=== PATIENT | male | born 1995 | race American Indian/Alaskan Native ===

== ENCOUNTER 2018-08-08 12:19 | Inpatient (IN) | payer SELFPAY ==
[2018-08-08] MEDS ORDERED: NACL 0.9% 1000 ML 1,000 ML IV ONE ×2 (12:43→15:45)
--- NOTE | 2018-08-08 12:46 | Emergency Department Report ---
ED Abdominal Pain HPI - General Chief Complaint: Abdominal Pain Stated Complaint: VOMIT/WEAK 3 DAYS VOMIT Time Seen by Provider: 08/08/18 12:25 Source: patient Mode of arrival: Ambulatory Limitations: No Limitations - History of Present Illness Initial Comments: Patient is a 22-year-old male that presents emergency room with complaints of nausea, vomiting, fever 24 hours. Patient states she is having nausea and vomiting and diarrhea that is uncontrollable. He states his symptoms are worsening. Patient states he did not get a flu shot this year. Patient denies respiratory symptoms. Patient states she's having sore throat that started after his vomiting. Patient states he is having generalized abdominal pain at 10 out of 10. Patient states the pain is nonradiating and is better with rest and worse with movement and eating and vomiting. MD Complaint: abdominal pain -: Sudden Location: diffuse Radiation: none Migration to: no migration Severity: severe Severity scale (0 -10): 10 Quality: stabbing Consistency: constant Improves With: rest Worsens With: eating, movement Associated Symptoms: nausea, vomiting, diarrhea, fever, chills. denies: constipation, dysuria, hematemesis, hematochezia, melena, hematuria, anorexia, syncope Treatments Prior to Arrival: NSAIDs - Related Data Previous Rx's Medication Instructions Recorded Last Taken Type Ibuprofen [Motrin] 800 mg PO Q8H PRN #14 tablet 05/03/14 Unknown Rx traMADol [Ultram] 50 mg PO Q6HR PRN #10 tablet 05/03/14 Unknown Rx Allergies Allergy/AdvReac Type Severity Reaction Status Date / Time No Known Allergies Allergy Unverified 05/03/14 21:27 ED Review of Systems ROS: Stated complaint: VOMIT/WEAK 3 DAYS VOMIT Other details as noted in HPI Constitutional: denies: chills, fever Eyes: denies: eye pain, eye discharge, vision change ENT: throat pain. denies: ear pain Respiratory: denies: cough, shortness of breath, wheezing Cardiovascular: denies: chest pain, palpitations Endocrine: no symptoms reported Gastrointestinal: abdominal pain, nausea, vomiting, diarrhea Genitourinary: denies: urgency, dysuria Musculoskeletal: denies: back pain, joint swelling, arthralgia Skin: denies: rash, lesions Neurological: denies: headache, weakness, paresthesias Psychiatric: denies: anxiety, depression Hematological/Lymphatic: denies: easy bleeding, easy bruising ED Past Medical Hx - Past Medical History Previous Medical History?: No - Surgical History Past Surgical History?: No - Family History Family history: no significant - Social History Smoking Status: Never Smoker Substance Use Type: None - Medications Home Medications: Home Medications Medication Instructions Recorded Confirmed Last Taken Type Ibuprofen [Motrin] 800 mg PO Q8H PRN #14 tablet 05/03/14 Unknown Rx traMADol [Ultram] 50 mg PO Q6HR PRN #10 tablet 05/03/14 Unknown Rx ED Physical Exam - General Limitations: No Limitations General appearance: alert, in no apparent distress - Head Head exam: Present: atraumatic, normocephalic - Eye Eye exam: Present: normal appearance - ENT ENT exam: Present: mucous membranes dry - Expanded ENT Exam Expanded Throat exam: Positive: tonsillar erythema - Neck Neck exam: Present: normal inspection - Respiratory Respiratory exam: Present: normal lung sounds bilaterally. Absent: respiratory distress - Cardiovascular Cardiovascular Exam: Present: regular rate, normal rhythm. Absent: systolic murmur, diastolic murmur, rubs, gallop - GI/Abdominal GI/Abdominal exam: Present: soft, tenderness (generalized tenderness), normal bowel sounds - Rectal Rectal exam: Present: deferred - Extremities Exam Extremities exam: Present: normal inspection - Back Exam Back exam: Present: normal inspection - Neurological Exam Neurological exam: Present: alert, oriented X3 - Psychiatric Psychiatric exam: Present: normal affect, normal mood - Skin Skin exam: Present: warm, dry, intact, normal color. Absent: rash ED Course Vital Signs 08/08/18 08/08/18 12:27 15:45 Temperature 101.4 F H 99.3 F Pulse Rate 117 H 101 H Respiratory 18 18 Rate Blood Pressure 123/78 Blood Pressure 141/83 [Left] O2 Sat by Pulse 97 99 Oximetry - Reevaluation(s) Reevaluation #1: Discussed all results with patient. Temperature is improved. Patient states she is not feeling better. Patient unable to tolerate by mouth challenge. His custody admission with patient. Patient agrees with plan of care and admission. Patient admitted to the hospitalist service. 08/08/18 15:44 - Consultations Consultation #1: Hospitals consult for admission. Hospitalist to admit patient assume care of patient.. Bridge orders placed 08/08/18 16:13 ED Medical Decision Making - Lab Data Result diagrams: 08/08/18 12:50 08/08/18 12:50 - Radiology Data Radiology results: report reviewed - Medical Decision Making Patient is a 22-year-old male presents emergency room with complaints of nausea and vomiting and sore throat 2 days. Patient nausea and vomiting started prior to his sore throat. Patient's labs significant for dehydration and hypokalemia and hyponatremia. Patient given Zofran and a by mouth challenge done. Patient failed by mouth challenge. Patient's CT significant for gastroenteritis. Patient elevated white count. Patient to be admitted to the hospitalist service for further evaluation treatment. - Differential Diagnosis gastritis. strep. flu. gastroenteritis/ n/v/d Critical Care Time: Yes Critical care attestation.: If time is entered above; I have spent that time in minutes in the direct care of this critically ill patient, excluding procedure time. Critical Care Time: 35 minutes ED Disposition Clinical Impression: Gastroenteritis, Sore throat, Dehydration, Hypokalemia Abdominal pain Qualifiers: Abdominal location: generalized Qualified Code(s): R10.84 - Generalized abdominal pain Nausea & vomiting Qualifiers: Vomiting type: unspecified Vomiting Intractability: intractable Qualified Code(s): R11.2 - Nausea with vomiting, unspecified Fever Qualifiers: Fever type: unspecified Qualified Code(s): R50.9 - Fever, unspecified Disposition: DC-09 OP ADMIT IP TO THIS HOSP Is pt being admited?: Yes Does the pt Need Aspirin: No Condition: Critical Time of Disposition: 15:45
[2018-08-08 13:10] LABS: Hematocrit 44.5 % (35.5-45.6); Hemoglobin 14.9 gm/dl (11.8-15.2); Mean Corpuscular HGB Conc 33 % (32-34); Mean Corpuscular Volume 83 fl (84-94); Platelet Count 245 K/mm3 (140-440); Red Blood Count 5.39 M/mm3 (3.65-5.03); Red Cell Distribution Width 14.1 % (13.2-15.2)
[2018-08-08 13:38] LABS: Basophils % (Manual) 0 % (0.0-1.8); Eosinophils % (Manual) 0 % (0.0-4.3); Total Cells Counted 100
[2018-08-08 13:40] LABS: Anisocytosis 1+; Ovalocytes Few; Platelet Estimate Consistent w Auto; Poikilocytosis 1+
[2018-08-08 13:42] LABS: Alanine Aminotransferase 13 units/L (7-56); Albumin 3.9 g/dL (3.9-5); BUN/Creatinine Ratio 8; Blood Urea Nitrogen 9 mg/dL (9-20); Calcium 8.9 mg/dL (8.4-10.2); Hemolysis Index 9
[2018-08-08 14:06] LABS: Bilirubin,Urine NEG (Negative); Blood,Urine NEG (Negative); Color,Urine Amber (Yellow); Mucus,Urine 3+ /HPF
[2018-08-08] MEDS ORDERED: TYLENOL PO ONE (14:18)
[2018-08-08] MEDS ORDERED: TYLENOL ONE (14:19)
--- NOTE | 2018-08-08 15:24 | Cat Scan Report ---
CT ABDOMEN AND PELVIS WITHOUT CONTRAST INDICATION: Abdominal pain. COMPARISON: None similar. FINDINGS: Noncontrast abdomen and pelvis CT performed. LUNG BASES: Mild nonspecific air-filled distal esophageal wall prominence/thickening, not excluded for gastroesophageal reflux and/or hiatal hernia, amongst others. ABDOMEN: Please note that sensitivity to detect small visceral lesions is limited due to the absence of intravenous or oral contrast. Slight diffuse fatty hepatic infiltration possible. Right hepatic lobe approximately 19 cm in midclavicular length. Otherwise grossly unremarkable the unenhanced liver, spleen, gallbladder, pancreas, adrenals, aorta, IVC and kidneys. Nonopacified GI tract evaluation limited, though grossly nonobstructive. Normal appendix. Fluid contents/ill-formed stool noted along the ascending colon. Small fat-containing umbilical hernia with a transverse neck of 0.7 cm. No ascites. However, numerous small, predominantly subcentimeter, shotty mesenteric and retroperitoneal lymph nodes noted with the largest/somewhat confluent in the right lower quadrant measuring up to 1.3 cm on axial image 103, series 2. PELVIS: Grossly unremarkable non-opacified urinary bladder, seminal vesicles and the prostate. Somewhat fluid/poorly formed contents in the rectosigmoid as well. No free fluid or significant adenopathy. Mild lumbar levocurvature apex about L3. CONCLUSION: Various incidental findings on this limited, unenhanced CT, including possible gastroenteritis, subtle fatty hepatic infiltration and numerous shotty mesenteric lymph nodes, latter possibly considered for mesenteric adenitis as a diagnosis of exclusion in an appropriate setting. Thank you for the opportunity to participate in this patient's care.
[2018-08-08] MEDS ORDERED: ZOFRAN IV ONE (15:45)
[2018-08-08] MEDS ORDERED: ZOSYN/NS 4.5GM/100ML 4.5 GM/100 ML VIAL IV ONE (15:45)
--- NOTE | 2018-08-08 20:50 | History and Physical Report ---
History of Present Illness Date of examination: 08/08/18 Date of admission: 08/08/18 16:10 Chief complaint: Nausea vomiting and diarrhea for 1 day History of present illness: 22-year-old -[place] male with no significant past medical history comes in for persistent vomiting and diarrhea for the last 24 hours. Patient says he vomited about 10-15 times. Patient also has generalized abdominal discomfort. Diffuse all over. Pain is about a scale of 1-10. Loose watery stools. No precipitating factor. Patient also has some sore throat. No fever or chills. Past Medical History Previous Medical History?: No Surgical History Past Surgical History?: No Family History Family history: no significant Social History Smoking Status: Never Smoker Substance Use Type: None Medications Home Medications: Home Medications Medication Instructions Recorded Confirmed Last Taken Type Ibuprofen [Motrin] 800 mg PO Q8H PRN #14 tablet 05/03/14 Unknown Rx traMADol [Ultram] 50 mg PO Q6HR PRN #10 tablet 05/03/14 Unknown Rx Review of Systems ROS: Stated complaint: VOMIT/WEAK 3 DAYS VOMIT Other details as noted in HPI Constitutional: denies: chills, fever Eyes: denies: eye pain, eye discharge, vision change ENT: throat pain. denies: ear pain Respiratory: denies: cough, shortness of breath, wheezing Cardiovascular: denies: chest pain, palpitations Endocrine: no symptoms reported Gastrointestinal: abdominal pain, nausea, vomiting, diarrhea Genitourinary: denies: urgency, dysuria Musculoskeletal: denies: back pain, joint swelling, arthralgia Skin: denies: rash, lesions Neurological: denies: headache, weakness, paresthesias Psychiatric: denies: anxiety, depression Hematological/Lymphatic: denies: easy bleeding, easy bruising Medications and Allergies Allergies Allergy/AdvReac Type Severity Reaction Status Date / Time No Known Allergies Allergy Unverified 05/03/14 21:27 Home Medications Medication Instructions Recorded Confirmed Last Taken Type No Known Home Medications [No 08/08/18 08/08/18 Unknown History Reported Home Medications] Active Meds: Active Medications Benzocaine/Menthol (Cepacol X Strength) 1 each MM Q2HR PRN PRN Reason: Sore Throat Exam - Constitutional Vitals: Temp Pulse Resp BP Pulse Ox 98.4 F 88 16 141/85 99 08/08/18 17:35 08/08/18 17:18 08/08/18 17:18 08/08/18 17:18 08/08/18 17:18 General appearance: Present: no acute distress, well-nourished - EENT Eyes: Present: PERRL ENT: hearing intact, clear oral mucosa, other (dry mucous membranes) - Neck Neck: Present: supple, normal ROM - Respiratory Respiratory effort: normal Respiratory: bilateral: CTA - Cardiovascular Heart rate: 98 Rhythm: regular Heart Sounds: Present: S1 & S2. Absent: rub, click - Extremities Extremities: no ischemia, pulses intact, pulses symmetrical, No edema Peripheral Pulses: within normal limits - Abdominal General gastrointestinal: Present: soft, tender, non-distended, normal bowel sounds Localized gastrointestinal: tender: diffuse (no guarding) Male genitourinary: Present: normal - Rectal Rectal Exam: deferred - Integumentary Integumentary: Present: clear, warm, dry - Musculoskeletal Musculoskeletal: gait normal, strength equal bilaterally - Psychiatric Psychiatric: appropriate mood/affect, intact judgment & insight - Neurologic Neurologic: CNII-XII intact, moves all extremities - Allied Health Allied health notes reviewed: nursing, case management Results - Labs CBC & Chem 7: 08/08/18 12:50 08/08/18 12:50 Labs: Laboratory Last Values WBC 11.4 K/mm3 (4.5-11.0) H 08/08/18 12:50 RBC 5.39 M/mm3 (3.65-5.03) H 08/08/18 12:50 Hgb 14.9 gm/dl (11.8-15.2) 08/08/18 12:50 Hct 44.5 % (35.5-45.6) 08/08/18 12:50 MCV 83 fl (84-94) L 08/08/18 12:50 MCH 28 pg (28-32) 08/08/18 12:50 MCHC 33 % (32-34) 08/08/18 12:50 RDW 14.1 % (13.2-15.2) 08/08/18 12:50 Plt Count 245 K/mm3 (140-440) 08/08/18 12:50 Edgar % (Auto) [employer]ant 08/08/18 12:50 Add Manual Diff Complete 08/08/18 12:50 Total Counted 100 08/08/18 12:50 Seg Neuts % (Manual) 71.0 % (40.0-70.0) H 08/08/18 12:50 Band Neutrophils % 0 % 08/08/18 12:50 Lymphocytes % (Manual) 14.0 % (13.4-35.0) 08/08/18 12:50 Reactive Lymphs % (Man) 0 % 08/08/18 12:50 Monocytes % (Manual) 15.0 % (0.0-7.3) H 08/08/18 12:50 Eosinophils % (Manual) 0 % (0.0-4.3) 08/08/18 12:50 Basophils % (Manual) 0 % (0.0-1.8) 08/08/18 12:50 Metamyelocytes % 0 % 08/08/18 12:50 Myelocytes % 0 % 08/08/18 12:50 Promyelocytes % 0 % 08/08/18 12:50 Blast Cells % 0 % 08/08/18 12:50 Nucleated RBC % Not Reportable 08/08/18 12:50 Seg Neutrophils # Man 8.1 K/mm3 (1.8-7.7) H 08/08/18 12:50 Band Neutrophils # 0.0 K/mm3 08/08/18 12:50 Lymphocytes # (Manual) 1.6 K/mm3 (1.2-5.4) 08/08/18 12:50 Abs React Lymphs (Man) 0.0 K/mm3 08/08/18 12:50 Monocytes # (Manual) 1.7 K/mm3 (0.0-0.8) H 08/08/18 12:50 Eosinophils # (Manual) 0.0 K/mm3 (0.0-0.4) 08/08/18 12:50 Basophils # (Manual) 0.0 K/mm3 (0.0-0.1) 08/08/18 12:50 Metamyelocytes # 0.0 K/mm3 08/08/18 12:50 Myelocytes # 0.0 K/mm3 08/08/18 12:50 Promyelocytes # 0.0 K/mm3 08/08/18 12:50 Blast Cells # 0.0 K/mm3 08/08/18 12:50 WBC Morphology Not Reportable 08/08/18 12:50 Hypersegmented Neuts Not Reportable 08/08/18 12:50 Hyposegmented Neuts Not Reportable 08/08/18 12:50 Hypogranular Neuts Not Reportable 08/08/18 12:50 Smudge Cells Not Reportable 08/08/18 12:50 Toxic Granulation Not Reportable 08/08/18 12:50 Toxic Vacuolation Not Reportable 08/08/18 12:50 Dohle Bodies Not Reportable 08/08/18 12:50 Pelger-Huet Anomaly Not Reportable 08/08/18 12:50 Adrian Rods Not Reportable 08/08/18 12:50 Platelet Estimate Consistent w auto 08/08/18 12:50 Clumped Platelets Not Reportable 08/08/18 12:50 Plt Clumps, EDTA Not Reportable 08/08/18 12:50 Large Platelets Not Reportable 08/08/18 12:50 Giant Platelets Not Reportable 08/08/18 12:50 Platelet Satelliting Not Reportable 08/08/18 12:50 Plt Morphology Comment Not Reportable 08/08/18 12:50 RBC Morphology Not Reportable 08/08/18 12:50 Dimorphic RBCs Not Reportable 08/08/18 12:50 Polychromasia Not Reportable 08/08/18 12:50 Hypochromasia Not Reportable 08/08/18 12:50 Poikilocytosis 1+ 08/08/18 12:50 Anisocytosis 1+ 08/08/18 12:50 Microcytosis Not Reportable 08/08/18 12:50 Macrocytosis Not Reportable 08/08/18 12:50 Spherocytes Not Reportable 08/08/18 12:50 Pappenheimer Bodies Not Reportable 08/08/18 12:50 Sickle Cells Not Reportable 08/08/18 12:50 Target Cells Not Reportable 08/08/18 12:50 Tear Drop Cells Not Reportable 08/08/18 12:50 Ovalocytes Few 08/08/18 12:50 Helmet Cells Not Reportable 08/08/18 12:50 [place] Bodies Not Reportable 08/08/18 12:[address] [place] Rings Not Reportable 08/08/18 12:50 Nelson Cells Not Reportable 08/08/18 12:50 Bite Cells Not Reportable 08/08/18 12:50 Crenated Cell Not Reportable 08/08/18 12:50 Elliptocytes Not Reportable 08/08/18 12:50 Acanthocytes (Spur) Not Reportable 08/08/18 12:50 Rouleaux Not Reportable 08/08/18 12:50 Hemoglobin C Crystals Not Reportable 08/08/18 12:50 Schistocytes Not Reportable 08/08/18 12:50 Malaria parasites Not Reportable 08/08/18 12:50 [place] Bodies Not Reportable 08/08/18 12:50 Hem Pathologist Commnt No 08/08/18 12:50 Sodium 134 mmol/L (137-145) L 08/08/18 12:50 Potassium 3.2 mmol/L (3.6-5.0) L 08/08/18 12:50 Chloride 93.0 mmol/L (98-107) L 08/08/18 12:50 Carbon Dioxide 23 mmol/L (22-30) 08/08/18 12:50 Anion Gap 21 mmol/L 08/08/18 12:50 BUN 9 mg/dL (9-20) 08/08/18 12:50 Creatinine 1.1 mg/dL (0.8-1.5) 08/08/18 12:50 Estimated GFR > 60 ml/min 08/08/18 12:50 BUN/Creatinine Ratio 8 % 08/08/18 12:50 Glucose 118 mg/dL (75-100) H 08/08/18 12:50 Lactic Acid 1.00 mmol/L (0.7-2.0) 08/08/18 15:59 Calcium 8.9 mg/dL (8.4-10.2) 08/08/18 12:50 Total Bilirubin 0.50 mg/dL (0.1-1.2) 08/08/18 12:50 AST 16 units/L (5-40) 08/08/18 12:50 ALT 13 units/L (7-56) 08/08/18 12:50 Alkaline Phosphatase 46 units/L (35-129) 08/08/18 12:50 Total Protein 8.1 g/dL (6.3-8.2) 08/08/18 12:50 Albumin 3.9 g/dL (3.9-5) 08/08/18 12:50 Albumin/Globulin Ratio 0.9 % 08/08/18 12:50 Urine Color Vani (Yellow) 08/08/18 13:50 Urine Turbidity Clear (Clear) 08/08/18 13:50 Urine pH 6.0 (5.0-7.0) 08/08/18 13:50 Ur Specific [place] 1.030 (1.003-1.030) 08/08/18 13:50 Urine Protein 100 mg/dl mg/dL (Negative) 08/08/18 13:50 Urine Glucose (UA) Neg mg/dL (Negative) 08/08/18 13:50 Urine Ketones 20 mg/dL (Negative) 08/08/18 13:50 Urine Blood Neg (Negative) 08/08/18 13:50 Urine Nitrite Neg (Negative) 08/08/18 13:50 Urine Bilirubin Neg (Negative) 08/08/18 13:50 Urine Urobilinogen 2.0 mg/dL (<2.0) 08/08/18 13:50 Ur Leukocyte Esterase Neg (Negative) 08/08/18 13:50 Urine WBC (Auto) 3.0 /HPF (0.0-6.0) 08/08/18 13:50 Urine RBC (Auto) 15.0 /HPF (0.0-6.0) 08/08/18 13:50 U Epithel Cells (Auto) < 1.0 /HPF (0-13.0) 08/08/18 13:50 Urine Mucus 3+ /HPF 08/08/18 13:50 Influenza A (Rapid) Negative (Negative) 08/08/18 Unknown Influenza B (Rapid) Negative (Negative) 08/08/18 Unknown Group A Strep Rapid Negative (Negative) 08/08/18 Unknown Short CBC 08/08/18 Range/Units 12:50 WBC 11.4 H (4.5-11.0) K/mm3 Hgb 14.9 (11.8-15.2) gm/dl Hct 44.5 (35.5-45.6) % Plt Count 245 (140-440) K/mm3 BMP 08/08/18 12:50 Sodium 134 L Potassium 3.2 L Chloride 93.0 L Carbon Dioxide 23 BUN 9 Creatinine 1.1 Glucose 118 H Calcium 8.9 Liver Function 08/08/18 Range/Units 12:50 Total Bilirubin 0.50 (0.1-1.2) mg/dL AST 16 (5-40) units/L ALT 13 (7-56) units/L Alkaline Phosphatase 46 (35-129) units/L Albumin 3.9 (3.9-5) g/dL Urine 08/08/18 Range/Units 13:50 Urine Color Vani (Yellow) Urine pH 6.0 (5.0-7.0) Ur Specific [place] 1.030 (1.003-1.030) Urine Protein 100 mg/dl (Negative) mg/dL Urine Glucose (UA) Neg (Negative) mg/dL - Imaging and Cardiology Imaging and Cardiology: CT abdomen and pelvis CONCLUSION: Various incidental findings on this limited, unenhanced CT, including possible gastroenteritis, subtle fatty hepatic infiltration and numerous shotty mesenteric lymph nodes, latter possibly considered for mesenteric adenitis as a diagnosis of exclusion in an appropriate setting. Assessment and Plan Advance Directives: Yes (full code) VTE prophylaxis?: Chemical Plan of care discussed with patient/family: Yes - Patient Problems (1) Acute gastroenteritis Current Visit: Yes Status: Acute Plan to address problem: IV fluids D5 normal saline with potassium IV Zofran and Reglan for vomiting Kaopectate for diarrhea (2) Dehydration Current Visit: Yes Status: Acute Plan to address problem: IV fluids for now (3) Hypokalemia Current Visit: Yes Status: Acute Plan to address problem: Supplemented (4) DVT prophylaxis Current Visit: Yes Status: Acute Plan to address problem: Lovenox and GI prophylaxis
[2018-08-08] MEDS ORDERED: REGLAN IV PRN (21:07)
[2018-08-08] MEDS ORDERED: ZOFRAN IV PRN (21:07)
[2018-08-08] MEDS ORDERED: SODIUM CHLORIDE FLUSH SYRINGE 10 ML IV PRN (21:07)
[2018-08-08] MEDS ORDERED: TYLENOL PO PRN (21:07)
[2018-08-08] MEDS ORDERED: PEPTO BISMOL PO PRN (21:13)
[2018-08-08] MEDS: CEPACOL X STRENGTH MM PRN (21:58)
[2018-08-08] MEDS: D5NS 1,000 ML IV SCH (21:59)
[2018-08-08] MEDS: SODIUM CHLORIDE FLUSH SYRINGE 10 ML IV SCH (21:59)
[2018-08-08] MEDS: KCL 10MEQ/100ML 10 MEQ/100 ML BAG IV SCH (21:59)
[2018-08-08] MEDS: PROTONIX IV SCH (22:00)
[2018-08-09] MEDS: KCL 10MEQ/100ML 10 MEQ/100 ML BAG IV SCH (00:05)
[2018-08-09] MEDS: CEPACOL X STRENGTH MM PRN ×2 (00:05→09:23)
[2018-08-09 05:48] LABS: Hematocrit 38.9 % (35.5-45.6); Hemoglobin 13.3 gm/dl (11.8-15.2); Mean Corpuscular HGB Conc 34 % (32-34); Mean Corpuscular Volume 82 fl (84-94); Platelet Count 202 K/mm3 (140-440); Red Blood Count 4.76 M/mm3 (3.65-5.03)
[2018-08-09 06:14] LABS: Alanine Aminotransferase 13 units/L (7-56); Albumin 3.6 g/dL (3.9-5); BUN/Creatinine Ratio 10; Blood Urea Nitrogen 7 mg/dL (9-20); Hemolysis Index 8
[2018-08-09 06:28] LABS: Anisocytosis 1+; Band Neutrophils # (Manual) 1.1 K/mm3; Basophils % (Manual) 0 % (0.0-1.8); Eosinophils % (Manual) 0 % (0.0-4.3); Large Platelets Rare; Ovalocytes 1+; Total Cells Counted 100
[2018-08-09] MEDS: D5NS 1,000 ML IV SCH ×3 (07:17→21:48)
--- NOTE | 2018-08-09 09:45 | Progress Note ---
Assessment and Plan Assessment and plan: --Hypokalemia; replenished per protocol and monitor levels Check magnesium --Hyponatremia; replacement therapy with normal saline Closely monitor electrolytes --Hypomagnesemia: Magnesium sulfate --Upper respiratory symptoms/possible pharyngitis/strep throat Amoxicillin, antihistamine, Chloraseptic throat is spray, antihistamine nasal spray as needed --Acute gastroenteritis; possible vital, symptomatic management IV hydration, antiemetics, stool analysis, antidiarrheals --Leukocytosis; stress related, secondary to underlying disease process Resolved --DVT prophylaxis; Lovenox --Obesity; BMI 34.9; advise weight reduction when medically stable Start soft diet and advance as tolerated Closely monitor the patient and adjust management as needed Plan of care is reviewed with the patient and his mother at the bedside History Interval history: Patient seen and examined medical records reviewed Admitted with upper respiratory symptoms, diarrhea Diarrhea significantly improved, complaints of sore throat Throat and upper respiratory congestion Alert awake oriented Mild distress Hospitalist Physical - Constitutional Vitals: Temp Pulse Resp BP Pulse Ox 99.7 F H 108 H 20 138/86 98 08/08/18 23:36 08/08/18 23:36 08/08/18 23:36 08/08/18 23:36 08/08/18 23:36 General appearance: Present: no acute distress, well-nourished - EENT Eyes: Present: PERRL, EOM intact - Neck Neck: Present: supple, normal ROM - Respiratory Respiratory effort: normal Respiratory: bilateral: diminished, negative: rales, rhonchi, wheezing - Cardiovascular Rhythm: regular Heart Sounds: Present: S1 & S2 - Extremities Extremities: no ischemia, No edema - Abdominal General gastrointestinal: soft, non-tender, non-distended, normal bowel sounds - Integumentary Integumentary: Present: clear, warm - Psychiatric Psychiatric: appropriate mood/affect, cooperative - Neurologic Neurologic: CNII-XII intact, moves all extremities Results - Labs CBC & Chem 7: 08/09/18 05:22 08/09/18 05:22 Labs: Laboratory Last Values WBC 9.2 K/mm3 (4.5-11.0) 08/09/18 05:22 RBC 4.76 M/mm3 (3.65-5.03) 08/09/18 05:22 Hgb 13.3 gm/dl (11.8-15.2) 08/09/18 05:22 Hct 38.9 % (35.5-45.6) 08/09/18 05:22 MCV 82 fl (84-94) L 08/09/18 05:22 MCH 28 pg (28-32) 08/09/18 05:22 MCHC 34 % (32-34) 08/09/18 05:22 RDW 14.0 % (13.2-15.2) 08/09/18 05:22 Plt Count 202 K/mm3 (140-440) 08/09/18 05:22 [place] % (Auto) Marketing Summer Intern 08/09/18 05:22 Add Manual Diff Complete 08/09/18 05:22 Total Counted 100 08/09/18 05:22 Seg Neuts % (Manual) 66.0 % (40.0-70.0) 08/09/18 05:22 Band Neutrophils % 12.0 % 08/09/18 05:22 Lymphocytes % (Manual) 13.0 % (13.4-35.0) L 08/09/18 05:22 Reactive Lymphs % (Man) 0 % 08/09/18 05:22 Monocytes % (Manual) 9.0 % (0.0-7.3) H 08/09/18 05:22 Eosinophils % (Manual) 0 % (0.0-4.3) 08/09/18 05:22 Basophils % (Manual) 0 % (0.0-1.8) 08/09/18 05:22 Metamyelocytes % 0 % 08/09/18 05:22 Myelocytes % 0 % 08/09/18 05:22 Promyelocytes % 0 % 08/09/18 05:22 Blast Cells % 0 % 08/09/18 05:22 Nucleated RBC % Not Reportable 08/09/18 05:22 Seg Neutrophils # Man 6.1 K/mm3 (1.8-7.7) 08/09/18 05:22 Band Neutrophils # 1.1 K/mm3 08/09/18 05:22 Lymphocytes # (Manual) 1.2 K/mm3 (1.2-5.4) 08/09/18 05:22 Abs React Lymphs (Man) 0.0 K/mm3 08/09/18 05:22 Monocytes # (Manual) 0.8 K/mm3 (0.0-0.8) 08/09/18 05:22 Eosinophils # (Manual) 0.0 K/mm3 (0.0-0.4) 08/09/18 05:22 Basophils # (Manual) 0.0 K/mm3 (0.0-0.1) 08/09/18 05:22 Metamyelocytes # 0.0 K/mm3 08/09/18 05:22 Myelocytes # 0.0 K/mm3 08/09/18 05:22 Promyelocytes # 0.0 K/mm3 08/09/18 05:22 Blast Cells # 0.0 K/mm3 08/09/18 05:22 WBC Morphology Not Reportable 08/09/18 05:22 Hypersegmented Neuts Not Reportable 08/09/18 05:22 Hyposegmented Neuts Not Reportable 08/09/18 05:22 Hypogranular Neuts Not Reportable 08/09/18 05:22 Smudge Cells Not Reportable 08/09/18 05:22 Toxic Granulation Not Reportable 08/09/18 05:22 Toxic Vacuolation Not Reportable 08/09/18 05:22 Dohle Bodies Not Reportable 08/09/18 05:22 Pelger-Huet Anomaly Not Reportable 08/09/18 05:22 Adrian Rods Not Reportable 08/09/18 05:22 Platelet Estimate Appears normal 08/09/18 05:22 Clumped Platelets Not Reportable 08/09/18 05:22 Plt Clumps, EDTA Not Reportable 08/09/18 05:22 Large Platelets Rare 08/09/18 05:22 Giant Platelets Not Reportable 08/09/18 05:22 Platelet Satelliting Not Reportable 08/09/18 05:22 Plt Morphology Comment Not Reportable 08/09/18 05:22 RBC Morphology Not Reportable 08/09/18 05:22 Dimorphic RBCs Not Reportable 08/09/18 05:22 Polychromasia Not Reportable 08/09/18 05:22 Hypochromasia Not Reportable 08/09/18 05:22 Poikilocytosis Not Reportable 08/09/18 05:22 Anisocytosis 1+ 08/09/18 05:22 Microcytosis Not Reportable 08/09/18 05:22 Macrocytosis Not Reportable 08/09/18 05:22 Spherocytes Not Reportable 08/09/18 05:22 Pappenheimer Bodies Not Reportable 08/09/18 05:22 Sickle Cells Not Reportable 08/09/18 05:22 Target Cells Not Reportable 08/09/18 05:22 Tear Drop Cells Not Reportable 08/09/18 05:22 Ovalocytes 1+ 08/09/18 05:22 Helmet Cells Not Reportable 08/09/18 05:22 [place]ríg[place] Bodies Not Reportable 08/09/18 05:22 [place] Rings Not Reportable 08/09/18 05:22 [place] Cells Not Reportable 08/09/18 05:22 Bite Cells Not Reportable 08/09/18 05:22 Crenated Cell Not Reportable 08/09/18 05:22 Elliptocytes Not Reportable 08/09/18 05:22 Acanthocytes (Spur) Not Reportable 08/09/18 05:22 Rouleaux Not Reportable 08/09/18 05:22 Hemoglobin C Crystals Not Reportable 08/09/18 05:22 Schistocytes Not Reportable 08/09/18 05:22 Malaria parasites Not Reportable 08/09/18 05:22 [place] Bodies Not Reportable 08/09/18 05:22 Hem Pathologist Commnt No 08/09/18 05:22 Sodium 132 mmol/L (137-145) L 08/09/18 05:22 Potassium 3.2 mmol/L (3.6-5.0) L 08/09/18 05:22 Chloride 95.4 mmol/L (98-107) L 08/09/18 05:22 Carbon Dioxide 22 mmol/L (22-30) 08/09/18 05:22 Anion Gap 18 mmol/L 08/09/18 05:22 BUN 7 mg/dL (9-20) L 08/09/18 05:22 Creatinine 0.7 mg/dL (0.8-1.5) L 08/09/18 05:22 Estimated GFR > 60 ml/min 08/09/18 05:22 BUN/Creatinine Ratio 10 % 08/09/18 05:22 Glucose 116 mg/dL (75-100) H 08/09/18 05:22 Hemoglobin A1c 6.2 % (4-6) H 08/08/18 21:23 Lactic Acid 1.00 mmol/L (0.7-2.0) 08/08/18 15:59 Calcium 8.0 mg/dL (8.4-10.2) L 08/09/18 05:22 Total Bilirubin 0.40 mg/dL (0.1-1.2) 08/09/18 05:22 AST 17 units/L (5-40) 08/09/18 05:22 ALT 13 units/L (7-56) 08/09/18 05:22 Alkaline Phosphatase 40 units/L (35-129) 08/09/18 05:22 Total Protein 7.0 g/dL (6.3-8.2) 08/09/18 05:22 Albumin 3.6 g/dL (3.9-5) L 08/09/18 05:22 Albumin/Globulin Ratio 1.1 % 08/09/18 05:22 Urine Color Vani (Yellow) 08/08/18 13:50 Urine Turbidity Clear (Clear) 08/08/18 13:50 Urine pH 6.0 (5.0-7.0) 08/08/18 13:[address] [place] 1.030 (1.003-1.030) 08/08/18 13:50 Urine Protein 100 mg/dl mg/dL (Negative) 08/08/18 13:50 Urine Glucose (UA) Neg mg/dL (Negative) 08/08/18 13:50 Urine Ketones 20 mg/dL (Negative) 08/08/18 13:50 Urine Blood Neg (Negative) 08/08/18 13:50 Urine Nitrite Neg (Negative) 08/08/18 13:50 Urine Bilirubin Neg (Negative) 08/08/18 13:50 Urine Urobilinogen 2.0 mg/dL (<2.0) 08/08/18 13:50 Ur Leukocyte Esterase Neg (Negative) 08/08/18 13:50 Urine WBC (Auto) 3.0 /HPF (0.0-6.0) 08/08/18 13:50 Urine RBC (Auto) 15.0 /HPF (0.0-6.0) 08/08/18 13:50 U Epithel Cells (Auto) < 1.0 /HPF (0-13.0) 08/08/18 13:50 Urine Mucus 3+ /HPF 08/08/18 13:50 Influenza A (Rapid) Negative (Negative) 08/08/18 Unknown Influenza B (Rapid) Negative (Negative) 08/08/18 Unknown Group A Strep Rapid Negative (Negative) 08/08/18 Unknown
[2018-08-09] MEDS ORDERED: K-DUR PO ONE (10:00)
[2018-08-09] MEDS: SODIUM CHLORIDE FLUSH SYRINGE 10 ML IV SCH ×2 (10:18→21:46)
[2018-08-09] MEDS: PROTONIX IV SCH ×2 (10:22→21:46)
[2018-08-09] MEDS: DILAUDID IV PRN ×2 (10:24→16:45)
[2018-08-09] MEDS ORDERED: AMBIEN PO PRN (16:12)
[2018-08-09] MEDS ORDERED: MAGNESIUM SULFATE 2GM/50ML 2 GM/50 ML BAG IV ONE (16:21)
[2018-08-09] MEDS ORDERED: VICKS SINEX NS PRN (20:13)
[2018-08-09] MEDS: TRIMOX PO SCH (21:46)
[2018-08-10] MEDS: TRIMOX PO SCH ×3 (05:21→22:59)
[2018-08-10] MEDS: CHLORASEPTIC MM PRN ×4 (05:21→23:01)
[2018-08-10] MEDS: D5NS 1,000 ML IV SCH (05:57)
[2018-08-10 06:12] LABS: Basophils % (Auto) 0.3 % (0.0-1.8); Hematocrit 39.9 % (35.5-45.6); Hemoglobin 13.8 gm/dl (11.8-15.2); Lymphocytes # (Auto) 1.3 K/mm3 (1.2-5.4); Lymphocytes % (Auto) 14.3 % (13.4-35.0); Mean Corpuscular HGB Conc 35 % (32-34); Mean Corpuscular Volume 82 fl (84-94); Monocytes # (Auto) 1.5 K/mm3 (0.0-0.8); Monocytes % (Auto) 15.9 % (0.0-7.3); Platelet Count 219 K/mm3 (140-440); Red Blood Count 4.85 M/mm3 (3.65-5.03); Red Cell Distribution Width 14.4 % (13.2-15.2)
[2018-08-10 06:52] LABS: BUN/Creatinine Ratio 6; Blood Urea Nitrogen 4 mg/dL (9-20); Hemolysis Index 8
[2018-08-10] MEDS ORDERED: SODIUM PHOSPHATE 45 MMOL in NACL 0.9% 500 ML 500 ML IV ONE (10:00)
[2018-08-10] MEDS: PROTONIX IV SCH (10:40)
[2018-08-10] MEDS: SODIUM CHLORIDE FLUSH SYRINGE 10 ML IV SCH ×2 (10:41→23:02)
[2018-08-10] MEDS: CLARITIN-D 24HR PO SCH (11:39)
--- NOTE | 2018-08-10 18:27 | Progress Note ---
Assessment and Plan Assessment and plan: --Hypokalemia; replenished per protocol and monitor levels Check magnesium --Hyponatremia; replacement therapy with normal saline Mild improvement --Hypomagnesemia: Magnesium sulfate --Hypophosphatemia; sodium phosphate IV, follow electrolytes --Upper respiratory symptoms/Acute pharyngitis/?strep throat Amoxicillin, antihistamine, Chloraseptic throat is spray, antihistamine nasal spray as needed,Influenza A, B, strep throat negative --Acute gastroenteritis; resolved IV hydration, supportive care --Leukocytosis; stress related, secondary to underlying disease process Resolved --DVT prophylaxis; Lovenox --Obesity; BMI 34.9; advise weight reduction when medically stable Start soft diet and advance as tolerated Closely monitor the patient and adjust management as needed Plan of care is reviewed with the patient and his mother at the bedside History Interval history: Patient seen and examined medical records reviewed Patient feels slightly better still has some congestion upper respiratory symptoms Influenza. A, B and strep throat. Negative; vital signs reviewed Hospitalist Physical - Constitutional Vitals: Temp Pulse Resp BP Pulse Ox 99.5 F 102 H 18 132/85 97 08/10/18 05:23 08/10/18 05:23 08/10/18 05:23 08/10/18 05:23 08/10/18 05:23 General appearance: Present: no acute distress, well-nourished - EENT Eyes: Present: PERRL, EOM intact - Neck Neck: Present: supple, normal ROM - Respiratory Respiratory effort: normal Respiratory: bilateral: diminished, negative: rales, rhonchi, wheezing - Cardiovascular Rhythm: regular Heart Sounds: Present: S1 & S2 - Extremities Extremities: no ischemia, No edema - Abdominal General gastrointestinal: non-tender, non-distended, normal bowel sounds - Integumentary Integumentary: Present: clear, warm - Psychiatric Psychiatric: appropriate mood/affect, cooperative - Neurologic Neurologic: CNII-XII intact, moves all extremities Results - Labs CBC & Chem 7: 08/10/18 05:44 08/10/18 05:44 Labs: Laboratory Last Values WBC 9.1 K/mm3 (4.5-11.0) 08/10/18 05:44 RBC 4.85 M/mm3 (3.65-5.03) 08/10/18 05:44 Hgb 13.8 gm/dl (11.8-15.2) 08/10/18 05:44 Hct 39.9 % (35.5-45.6) 08/10/18 05:44 MCV 82 fl (84-94) L 08/10/18 05:44 MCH 29 pg (28-32) 08/10/18 05:44 MCHC 35 % (32-34) H 08/10/18 05:44 RDW 14.4 % (13.2-15.2) 08/10/18 05:44 Plt Count 219 K/mm3 (140-440) 08/10/18 05:44 Lymph % (Auto) 14.3 % (13.4-35.0) 08/10/18 05:44 [place] % (Auto) 15.9 % (0.0-7.3) H 08/10/18 05:44 Eos % (Auto) 0.0 % (0.0-4.3) 08/10/18 05:44 Baso % (Auto) 0.3 % (0.0-1.8) 08/10/18 05:44 Lymph # 1.3 K/mm3 (1.2-5.4) 08/10/18 05:44 [place] # 1.5 K/mm3 (0.0-0.8) H 08/10/18 05:44 Eos # 0.0 K/mm3 (0.0-0.4) 08/10/18 05:44 Baso # 0.0 K/mm3 (0.0-0.1) 08/10/18 05:44 Add Manual Diff Complete 08/09/18 05:22 Total Counted 100 08/09/18 05:22 Seg Neutrophils % 69.5 % (40.0-70.0) 08/10/18 05:44 Seg Neuts % (Manual) 66.0 % (40.0-70.0) 08/09/18 05:22 Band Neutrophils % 12.0 % 08/09/18 05:22 Lymphocytes % (Manual) 13.0 % (13.4-35.0) L 08/09/18 05:22 Reactive Lymphs % (Man) 0 % 08/09/18 05:22 Monocytes % (Manual) 9.0 % (0.0-7.3) H 08/09/18 05:22 Eosinophils % (Manual) 0 % (0.0-4.3) 08/09/18 05:22 Basophils % (Manual) 0 % (0.0-1.8) 08/09/18 05:22 Metamyelocytes % 0 % 08/09/18 05:22 Myelocytes % 0 % 08/09/18 05:22 Promyelocytes % 0 % 08/09/18 05:22 Blast Cells % 0 % 08/09/18 05:22 Nucleated RBC % Not Reportable 08/09/18 05:22 Seg Neutrophils # 6.3 K/mm3 (1.8-7.7) 08/10/18 05:44 Seg Neutrophils # Man 6.1 K/mm3 (1.8-7.7) 08/09/18 05:22 Band Neutrophils # 1.1 K/mm3 08/09/18 05:22 Lymphocytes # (Manual) 1.2 K/mm3 (1.2-5.4) 08/09/18 05:22 Abs React Lymphs (Man) 0.0 K/mm3 08/09/18 05:22 Monocytes # (Manual) 0.8 K/mm3 (0.0-0.8) 08/09/18 05:22 Eosinophils # (Manual) 0.0 K/mm3 (0.0-0.4) 08/09/18 05:22 Basophils # (Manual) 0.0 K/mm3 (0.0-0.1) 08/09/18 05:22 Metamyelocytes # 0.0 K/mm3 08/09/18 05:22 Myelocytes # 0.0 K/mm3 08/09/18 05:22 Promyelocytes # 0.0 K/mm3 08/09/18 05:22 Blast Cells # 0.0 K/mm3 08/09/18 05:22 WBC Morphology Not Reportable 08/09/18 05:22 Hypersegmented Neuts Not Reportable 08/09/18 05:22 Hyposegmented Neuts Not Reportable 08/09/18 05:22 Hypogranular Neuts Not Reportable 08/09/18 05:22 Smudge Cells Not Reportable 08/09/18 05:22 Toxic Granulation Not Reportable 08/09/18 05:22 Toxic Vacuolation Not Reportable 08/09/18 05:22 Dohle Bodies Not Reportable 08/09/18 05:22 Pelger-Huet Anomaly Not Reportable 08/09/18 05:22 Adrian Rods Not Reportable 08/09/18 05:22 Platelet Estimate Appears normal 08/09/18 05:22 Clumped Platelets Not Reportable 08/09/18 05:22 Plt Clumps, EDTA Not Reportable 08/09/18 05:22 Large Platelets Rare 08/09/18 05:22 Giant Platelets Not Reportable 08/09/18 05:22 Platelet Satelliting Not Reportable 08/09/18 05:22 Plt Morphology Comment Not Reportable 08/09/18 05:22 RBC Morphology Not Reportable 08/09/18 05:22 Dimorphic RBCs Not Reportable 08/09/18 05:22 Polychromasia Not Reportable 08/09/18 05:22 Hypochromasia Not Reportable 08/09/18 05:22 Poikilocytosis Not Reportable 08/09/18 05:22 Anisocytosis 1+ 08/09/18 05:22 Microcytosis Not Reportable 08/09/18 05:22 Macrocytosis Not Reportable 08/09/18 05:22 Spherocytes Not Reportable 08/09/18 05:22 Pappenheimer Bodies Not Reportable 08/09/18 05:22 Sickle Cells Not Reportable 08/09/18 05:22 Target Cells Not Reportable 08/09/18 05:22 Tear Drop Cells Not Reportable 08/09/18 05:22 Ovalocytes 1+ 08/09/18 05:22 Helmet Cells Not Reportable 08/09/18 05:22 Rodríg[place] Bodies Not Reportable 08/09/18 05:22 [place] Rings Not Reportable 08/09/18 05:22 [place] Cells Not Reportable 08/09/18 05:22 Bite Cells Not Reportable 08/09/18 05:22 Crenated Cell Not Reportable 08/09/18 05:22 Elliptocytes Not Reportable 08/09/18 05:22 Acanthocytes (Spur) Not Reportable 08/09/18 05:22 Rouleaux Not Reportable 08/09/18 05:22 Hemoglobin C Crystals Not Reportable 08/09/18 05:22 Schistocytes Not Reportable 08/09/18 05:22 Malaria parasites Not Reportable 08/09/18 05:22 [place] Bodies Not Reportable 08/09/18 05:22 Hem Pathologist Commnt No 08/09/18 05:22 Sodium 133 mmol/L (137-145) L 08/10/18 05:44 Potassium 3.7 mmol/L (3.6-5.0) 08/10/18 05:44 Chloride 97.0 mmol/L (98-107) L 08/10/18 05:44 Carbon Dioxide 23 mmol/L (22-30) 08/10/18 05:44 Anion Gap 17 mmol/L 08/10/18 05:44 BUN 4 mg/dL (9-20) L 08/10/18 05:44 Creatinine 0.7 mg/dL (0.8-1.5) L 08/10/18 05:44 Estimated GFR > 60 ml/min 08/10/18 05:44 BUN/Creatinine Ratio 6 % 08/10/18 05:44 Glucose 127 mg/dL (75-100) H 08/10/18 05:44 Hemoglobin A1c 6.2 % (4-6) H 08/08/18 21:23 Lactic Acid 1.00 mmol/L (0.7-2.0) 08/08/18 15:59 Calcium 8.0 mg/dL (8.4-10.2) L 08/10/18 05:44 Phosphorus 1.90 mg/dL (2.5-4.5) L 08/10/18 05:44 Magnesium 2.20 mg/dL (1.7-2.3) 08/10/18 05:44 Total Bilirubin 0.40 mg/dL (0.1-1.2) 08/09/18 05:22 AST 17 units/L (5-40) 08/09/18 05:22 ALT 13 units/L (7-56) 08/09/18 05:22 Alkaline Phosphatase 40 units/L (35-129) 08/09/18 05:22 Total Protein 7.0 g/dL (6.3-8.2) 08/09/18 05:22 Albumin 3.6 g/dL (3.9-5) L 08/09/18 05:22 Albumin/Globulin Ratio 1.1 % 08/09/18 05:22 Urine Color Vani (Yellow) 08/08/18 13:50 Urine Turbidity Clear (Clear) 08/08/18 13:50 Urine pH 6.0 (5.0-7.0) 08/08/18 13:50 Ur Specific [place] 1.030 (1.003-1.030) 08/08/18 13:50 Urine Protein 100 mg/dl mg/dL (Negative) 08/08/18 13:50 Urine Glucose (UA) Neg mg/dL (Negative) 08/08/18 13:50 Urine Ketones 20 mg/dL (Negative) 08/08/18 13:50 Urine Blood Neg (Negative) 08/08/18 13:50 Urine Nitrite Neg (Negative) 08/08/18 13:50 Urine Bilirubin Neg (Negative) 08/08/18 13:50 Urine Urobilinogen 2.0 mg/dL (<2.0) 08/08/18 13:50 Ur Leukocyte Esterase Neg (Negative) 08/08/18 13:50 Urine WBC (Auto) 3.0 /HPF (0.0-6.0) 08/08/18 13:50 Urine RBC (Auto) 15.0 /HPF (0.0-6.0) 08/08/18 13:50 U Epithel Cells (Auto) < 1.0 /HPF (0-13.0) 08/08/18 13:50 Urine Mucus 3+ /HPF 08/08/18 13:50 Influenza A (Rapid) Negative (Negative) 08/08/18 Unknown Influenza B (Rapid) Negative (Negative) 08/08/18 Unknown Group A Strep Rapid Negative (Negative) 08/08/18 Unknown
[2018-08-10] MEDS: PROTONIX PO SCH (23:00)
[2018-08-11 06:05] LABS: BUN/Creatinine Ratio 8; Blood Urea Nitrogen 5 mg/dL (9-20); Calcium 8.7 mg/dL (8.4-10.2); Hemolysis Index 1
[2018-08-11] MEDS: TRIMOX PO SCH (07:03)
[2018-08-11 07:20] VITALS: BP 133/88
[2018-08-11] MEDS: SODIUM CHLORIDE FLUSH SYRINGE 10 ML IV SCH (09:51)
[2018-08-11] MEDS: PROTONIX PO SCH (09:51)
[2018-08-11] MEDS: CLARITIN-D 24HR PO SCH (09:51)
[2018-08-11] MEDS ORDERED: K-DUR PO ONE (11:45)
--- NOTE | 2018-08-11 12:28 | Discharge Summary ---
Providers - Providers Date of Admission: 08/08/18 16:10 Date of discharge: 08/11/18 Attending physician: LORENZO CLARK Primary care physician: BEAUTICIAN APPRENTICE Hospitalization Reason for admission: upper respiratory symptoms Condition: Fair Pertinent studies: CT abdomen and pelvis;incidental findings possible gastroenteritis cervical fatty hepatic infiltration numerous shotty mesenteric lymph nodes Hospital course: 22-year-old obese male patient was admitted through emergency room with upper respiratory symptoms, nausea and vomiting and diarrhea Patient was symptomatically managed, strep throat, influenza A, influenza B- Patient was symptomatically managed with antihistamines IV fluids parenteral antibiotics Throat spray. And supportive care Patient symptoms significantly improved Today patient has no new complaints vital signs stable Physical examination is unremarkable Patient is hemodynamically and clinically stable for discharge Advise weight reduction as tolerated Discharge diagnosis: --Hypokalemia; corrected --Hyponatremia; resolved --Hypomagnesemia: Corrected --Hypophosphatemia; corrected --Upper respiratory symptoms/Acute pharyngitis/ Amoxicillin, antihistamine, Chloraseptic throat is spray, antihistamine nasal spray as needed,Influenza A, B, strep throat negative --Acute gastroenteritis; resolved --Leukocytosis; stress related, resolved --DVT prophylaxis; Lovenox --Obesity; BMI 34.9; advise weight reduction when medically stable Disposition: - TO HOME OR SELFCARE Time spent for discharge: 32 min Core Measure Documentation - Palliative Care Palliative Care/ Comfort Measures: Not Applicable - Core Measures Any of the following diagnoses?: none Exam - Constitutional Vitals: Temp Pulse Resp BP Pulse Ox 98.2 F 96 H 18 133/88 97 08/11/18 05:26 08/11/18 05:26 08/11/18 05:26 08/11/18 05:26 08/11/18 05:26 General appearance: Present: no acute distress, well-nourished - EENT Eyes: Present: PERRL, EOM intact - Neck Neck: Present: supple, normal ROM - Respiratory Respiratory effort: normal Respiratory: negative: rales, rhonchi, wheezing - Cardiovascular Rhythm: regular Heart Sounds: Present: S1 & S2 - Extremities Extremities: no ischemia, No edema - Abdominal General gastrointestinal: Present: soft, non-tender, non-distended, normal bowel sounds - Integumentary Integumentary: Present: clear, warm - Musculoskeletal Musculoskeletal: strength equal bilaterally - Psychiatric Psychiatric: appropriate mood/affect, cooperative - Neurologic Neurologic: CNII-XII intact, moves all extremities Plan Activity: no restrictions Diet: regular Additional Instructions: Advise Exercise as tolerated and weight reduction Follow up with: PRIMARY CARE, [Primary Care Provider] - 3-5 Days Prescriptions: Amoxicillin [Trimox CAP] 500 mg PO Q8HR #15 capsule Loratadine/Pseudoephedrine [Claritin-D 24HR] 1 each PO Q24HR #7 tablet Phenol 1.4% [Chloraseptic] 1 spray MM TID PRN #1 bottle PRN Reason: Sore Throat
== END 2018-08-11 13:40 | disposition home or self-care (01) | DRG 392 ==
LOC: ED 12:19 → 3A 16:10
PROVIDERS: ADMIT Internal Medicine; ATTEND Internal Medicine
DX: K52.9 Noninfective gastroenteritis and colitis, unspecified (principal); E87.1 Hypo-osmolality and hyponatremia; E87.6 Hypokalemia; E83.42 Hypomagnesemia; E83.39 Other disorders of phosphorus metabolism; J02.9 Acute pharyngitis, unspecified; D72.829 Elevated white blood cell count, unspecified; E66.9 Obesity, unspecified; E86.0 Dehydration; Z68.34 Body mass index [BMI] 34.0-34.9, adult; Z71.3 Dietary counseling and surveillance
CPT/HCPCS: 36415; 74176; 80048; 80053; 81001; 82140; 83036; 83735; 84100; 85007; 85025; 87040; 87116; 87400; 87430; 96361; 96365; 96375; G0378; C9113; J1170; J2405; J2543; J2765; J3475; J3480; J7030; J7040; J7042